=== PATIENT | female | born 1995 | race Caucasian/White ===

== ENCOUNTER 2019-07-08 14:42 | Emergency (ER) | payer MEDICAID, OTHER ==
[2019-07-08 15:13] VITALS: BP 119/73
--- NOTE | 2019-07-08 15:30 | UC ---
Lower Extremity/Ankle HPI - HPI Summary HPI Summary: 20-year-old female who is approximate 9 weeks gestation. She was on a one day bus trip 1 week ago and a few days after that she had some right lower leg pain. She denies calf pain. She denies any recent illness. She states while she was on a bus trip they stopped the bus frequently and she did a lot of walking. Patient has been taking EC powder which is a mixture of aspirin and Pain over the past couple of years 3 times a day. She states she initially started it because of a toothache and then as time progressed she would have different aches and pains and so she states she routinely takes it 3 times a day. I did advise her because she is she should stop that. She has not noticed any leg swelling however she states her [id number] looked at her leg and thought it was swollen. She states she has some tingling on the lateral side of her right lower leg. She denies any recent injury that she can recall. - History of Current Complaint Chief Complaint: UCLowerExtremity Stated Complaint: R LEG CONCERN Time Seen by Provider: 07/08/19 15:16 Hx Obtained From: Patient Hx Last Menstrual Period: 05/03/19 ?: Yes Onset/Duration: Gradual Onset Severity Initially: Moderate Severity Currently: Moderate Pain Intensity: 9 Aggravating Factor(s): Ambulation Alleviating Factor(s): Rest, Elevation Able to Bear Weight: Yes - patient has not noticed any swelling - Allergies/Home Medications Allergies/Adverse Reactions: Allergies Allergy/AdvReac Type Severity Reaction Status Date / Time No Known Allergies Allergy Verified 07/08/19 14:57 Home Medications: Home Medications Acyclovir* [Zovirax 400 MG TAB*] 400 mg PO BID 07/08/19 [History Confirmed 07/08] Aspirin/Caffeine [Bc Powder Packet] 1,000 mg PO TID 07/08/19 [History Confirmed 07/08/19] PMH/Surg Hx/FS Hx/Imm Hx Previously Healthy: Yes - Surgical History Surgical History: None - Family History Known Family History: Positive: Non-Contributory - Social History Alcohol Use: None Substance Use Type: Excessive Caffeine Smoking Status (MU): Heavy Every Day Tobacco Smoker Type: Cigarettes Review of Systems All Other Systems Reviewed And Are Negative: Yes Skin: Positive: Bruising - Patient has 1 very small bluish purple bruise on her right proximal leg unknown cause. Musculoskeletal: Positive: Other: - She complains of pain to the lateral right lower leg. Is Patient Immunocompromised?: No Physical Exam Triage Information Reviewed: Yes Appearance: Well-Appearing, No Pain Distress, Well-Nourished Vital Signs: Initial Vital Signs Temp 97.6 F 07/08/19 15:00 Pulse 88 07/08/19 15:00 Resp 18 07/08/19 15:00 BP 119/73 07/08/19 15:00 Pulse Ox 97 07/08/19 15:00 Vital Signs Reviewed: Yes Musculoskeletal: Positive: Strength Intact, ROM Intact, Other: - Good peripheral pulses, neuro sensation and capillary refill, no pain on palpation of the right lower leg. Calf is nontender. The right lateral lower muscle appears minimally swollen compared to the left leg. Skin temperature is normal and equal in both legs. There is a very small purplish blue bruise to the proximal right leg just below the knee with minimal tenderness on palpation. It measures approximate 1.0 cm in diameter. Neurological: Positive: Alert, Muscle Tone Normal Psychological Exam: Normal Skin: Positive: Other - See above notes. Lower Extremity Course/Dx - Course Course Of Treatment: The patient is comfortable here and ambulatory without difficulty. I did advise her to make a point with an [employer] to manage her however her response was" I'm not worried about that I have plenty of time to take care of that because I of another kid at home". I advised her to stop taking the BC powder because it can affect bleeding properties. She is to apply warm moist compresses to the right lower leg, elevate and emulate his pain permits. She ambulates without difficulty. Her calf is nontender night don't feel she has a DVT. Skin is normal color. I feel at this point in time this is a muscle strain but she is to definitely to follow up at the [facility] for further care if no improvement. - Differential Dx/Diagnosis Provider Diagnosis: Muscle strain of right lower leg Discharge ED - Sign-Out/Discharge Documenting (check all that apply): Patient Departure All imaging exams completed and their final reports reviewed: No Studies - Discharge Plan Condition: Good Disposition: HOME Patient Education Materials: Muscle Strain (DC) Referrals: [facility] [Outside] No Primary Care Phys,NOPCP [Primary Care Provider] - Additional Instructions: Elevate as much as possible, apply warm moist compresses to the area 4-6 times a day, may take Tylenol for pain. Follow up at [facility] no improvement in 3 or 4 days. May ambulate as pain permits. - Billing Disposition and Condition Condition: GOOD Disposition: Home - Attestation Statements Provider Attestation: This patient was not seen by me I was available for consult Chart reviewed [facility]
== END 2019-07-08 15:37 | disposition home or self-care (01) ==
LOC: UCCORT 14:42
DX: O99.89 Other specified diseases and conditions complicating pregnancy, childbirth and the puerperium (principal); S86.911A Strain of unspecified muscle(s) and tendon(s) at lower leg level, right leg, initial encounter; O99.331 Smoking (tobacco) complicating pregnancy, first trimester; Y93.01 Activity, walking, marching and hiking; Y92.9 Unspecified place or not applicable; Z3A.09 9 weeks gestation of pregnancy
CPT/HCPCS: 99211; G0463